=== PATIENT | female | born 1975 | race Caucasian/White ===

== ENCOUNTER → 2017-08-25 | Outpatient (CLI) | payer MEDICAID, OTHER ==
[2017-08-25 08:07] LABS: HCT 40.3 % (34.0-46.0); HGB 12.4 gm/dL (11.4-16.0); MCH 27.8 pg (25.0-35.0); MCHC 30.8 g/dL (31.0-37.0); MCV 90.2 fL (80.0-100.0); Mean Platelet Volume 7.4; Platelet Count 304 k/uL (150-450); RBC 4.46 m/uL (3.80-5.40); RDW 13.3 % (11.5-15.5); WBC 9.7 k/uL (3.8-10.6)
[2017-08-25 08:43] LABS: T4, Free (Free Thyroxine) 0.98 ng/dL (0.78-2.19)
[2017-08-25 20:30] LABS: Hemoglobin A1C 5.7 % (4.0-6.0)
== END | disposition home or self-care (01) ==
LOC: LABWHC1 07:35
PROVIDERS: ATTEND Obstetrics & Gynecology
DX: E55.9 Vitamin D deficiency, unspecified (principal); R53.83 Other fatigue; E78.4 Other hyperlipidemia; Z13.1 Encounter for screening for diabetes mellitus
CPT/HCPCS: 36415; 80061; 82306; 82947; 83036; 84439; 84443; 85027

== ENCOUNTER → 2018-11-17 | Outpatient (CLI) | payer MEDICAID, OTHER ==
--- NOTE | 2018-11-18 11:55 | MM ---
Reason for exam: screening (asymptomatic). History: Benign excisional biopsy of the right breast, 2008. Physical Findings: A clinical breast exam by your physician is recommended on an annual basis and results should be correlated with mammographic findings. MG 3D Screening Mammo W/Cad Bilateral CC and MLO view(s) were taken. No prior studies available for comparison. The breast tissue is heterogeneously dense. This may lower the sensitivity of mammography. Nodular focal asymmetry on the left and 10 o'clock posterior left breast calcifications warrant further work up. ASSESSMENT: Incomplete: need additional imaging evaluation, BI-RAD 0 RECOMMENDATION: Special view mammogram of the left breast. If lesion persists on supplemental views, image directed ultrasound is recommended. [facility] will attempt to contact patient to return for supplemental views and ultrasound if indicated.
== END | disposition home or self-care (01) ==
LOC: RADMAMWWP 14:27
PROVIDERS: ATTEND Obstetrics & Gynecology
DX: Z12.31 Encounter for screening mammogram for malignant neoplasm of breast (principal)
CPT/HCPCS: 77063; 77067

== ENCOUNTER → 2018-11-23 | Outpatient (CLI) | payer MEDICAID, OTHER ==
--- NOTE | 2018-11-24 08:17 | MM ---
Reason for exam: additional evaluation requested from abnormal screening. Last mammogram was performed less than 1 month ago. History: Family history of breast cancer in paternal grandmother at age 80. Benign excisional biopsy of the right breast, 2008. Took hormonal contraceptives beginning at age 16. Physical Findings: Nurse did not find any significant physical abnormalities on exam. MG 3D Work Up W/Cad LT Spot compression CC, spot compression MLO, LM with magnification, CC with magnification, and LM view(s) were taken of the left breast. Prior study comparison: November 17, 2018, bilateral MG 3d screening mammo w/cad. The breast tissue is heterogeneously dense. This may lower the sensitivity of mammography. There is a left upper outer quadrant middle depth mass likely lymph node, ultrasound recommended, upper inner quadrant middle depth focal asymmetry also seen, ultrasound is recommended. There is a 3mm group of upper inner quadrant far posterior depth calcifications. These results were verbally communicated with the patient and result sheet given to the patient on 11/23/18. ASSESSMENT: Incomplete: need additional imaging evaluation, BI-RAD 0 RECOMMENDATION: Ultrasound of the left breast.
--- NOTE | 2018-11-24 08:21 | USB ---
Reason for exam: additional evaluation requested from abnormal screening. History: Family history of breast cancer in paternal grandmother at age 80. Benign excisional biopsy of the right breast, 2008. Took hormonal contraceptives beginning at age 16. US Breast Workup Limited LT Left limited breast ultrasound including focal area of concern, retroareolar and axilla demonstrates a 5 x 3 x 5mm oval, cystic lesion at 2 o'clock, a 3 x 3 x 3mm oval, cystic lesion at 3 o'clock, slightly irregular boarders, 6 month follow up ultrasound recommended and a 7 x 3 x 4mm oval, questionable lymph node at 3 o'clock, corresponds with mammographic probably lymph nodes. Mammogram 6 month follow up for right upper inner quadrant for asymmetry. These results were verbally communicated with the patient and result sheet given to the patient on 11/23/18. ASSESSMENT: Suspicious, BI-RAD 4 RECOMMENDATION: Stereotactic core biopsy of the left breast. (left calcifications) Called Dr. Foster with mammographic findings and has scheduled an appointment for the patient for 01/19/19 at 1:[address] Raza. Biopsy scheduled for 12/07/18 at 2:20. PRELIMINARY REPORT CALLED AND FAXED TO DR. RAZA ON 11/24/18.
== END | disposition home or self-care (01) ==
LOC: RADMAMWWP 09:47
PROVIDERS: ATTEND Obstetrics & Gynecology
DX: R92.8 Other abnormal and inconclusive findings on diagnostic imaging of breast (principal)
CPT/HCPCS: 77061; 77065

== ENCOUNTER → 2018-12-01 | Outpatient (CLI) | payer MEDICAID, OTHER ==
--- NOTE | 2018-12-01 15:19 | US ---
EXAMINATION TYPE: US pelvis complete transvag DATE OF EXAM: 12/01/2018 COMPARISON: NONE CLINICAL HISTORY: N92.0 Menorrhagia/N85.2 Enlarged Uterus. TECHNIQUE: Transvaginal (TV) and Transabdominal (TA) . Transabdominal sonographic images of the pel vis were acquired. Transvaginal sonographic images were medically necessary to better assess the fol lowing anatomy: Uterus Date of LMP: 11/07/18 EXAM MEASUREMENTS: Uterus: 9.7 x 6.4 x 5.6 cm Endometrial Stripe: 0.7 cm Right Ovary: 2.5 x 2.2 x 1.8 cm Left Ovary: 2.9 x 2.2 x 2.0 cm 1. Uterus: Anteverted bulky, heterogeneous texture, ? myomatous. 2. Endometrium: wnl 3. Right Ovary: wnl, follicles noted. 4. Left Ovary: wnl, follicles noted. 5. Bilateral Adnexa: wnl 6. Posterior cul-de-sac: wnl IMPRESSION: 1. Leiomyomatous change of the uterus.
== END | disposition home or self-care (01) ==
LOC: RADUSWWP 14:15
PROVIDERS: ATTEND Obstetrics & Gynecology
DX: D25.9 Leiomyoma of uterus, unspecified (principal)
CPT/HCPCS: 76830; 76856

== ENCOUNTER → 2018-12-07 | Day surgery (SDC) | payer MEDICAID, OTHER ==
[2018-12-07 14:10] VITALS: RESP 16; BMI 28.3
[2018-12-07 14:54] VITALS: BP 109/75; PULSE 80; TEMP 98.1
--- NOTE | 2018-12-07 16:02 | MM ---
EXAMINATION TYPE: MG stereo VAD BX LT DATE OF EXAM: 12/07/2018 COMPARISON: Mammogram 02/23/2019 CLINICAL HISTORY: Abnormal mammogram TECHNIQUE: Stereotactic guided core biopsy of left breast. FINDINGS: The procedure of stereotactic guided core biopsy was explained to the patient. Benefits, a lternatives, and risks were discussed. An informed consent was then obtained. The [facility] pathway for biopsy was chosen. I performed the localization and the procedure. A vacu um assisted biopsy gun was used to obtain multiple core samples using stereotactic guidance. The patient tolerated the procedure well without any immediate complication. The patient was kept in the radiology department for short stay after the procedure and then discharged home in stable condi tion. Targeted calcifications are identified in specimen mammogram. Post biopsy mammogram shows the clip to appear in satisfactory position relative to the targeted area of concern on the preprocedure images. IMPRESSION: SUCCESSFUL, UNCOMPLICATED STEREOTACTIC GUIDED CORE BIOPSY OF AREA OF CONCERN IN THE left BREAST, FULL PATHOLOGY RESULTS TO FOLLOW. This procedure performed by the undersigned.
== END | disposition home or self-care (01) ==
LOC: RADMAMWWP 13:29
PROVIDERS: ATTEND Surgery
DX: N60.12 Diffuse cystic mastopathy of left breast (principal)
CPT/HCPCS: 88305; 19081; A4648; J2001

== ENCOUNTER 2019-06-14 11:21 | Emergency (ER) | payer MEDICAID, OTHER ==
[2019-06-14 11:28] VITALS: RESP 18
--- NOTE | 2019-06-14 12:21 | CT ---
EXAMINATION TYPE: CT brain wo con DATE OF EXAM: 06/14/2019 COMPARISON: None HISTORY: Head pressure, strobe light in eyes CT DLP: 1025.4 mGycm. Automated Exposure Control for Dose Reduction was Utilized. TECHNIQUE: CT scan of the head is performed without contrast. FINDINGS: There is no acute intracranial hemorrhage, mass effect, or midline shift identified. The ventricles and sulci are within normal limits in size. Changes of mild chronic sinusitis partially e mpty sella turcica. IMPRESSION: 1. No acute intracranial hemorrhage, mass effect, or midline shift is seen. Correlate with MRI as cli nically warranted or if there is concern for increased cranial pressure. 2. Partially empty sella turcica. 3. Chronic sinusitis
[2019-06-14] MEDS ORDERED: BUTALB/APAP/CAFF 50-325-40MG TAB PO STA (12:41)
[2019-06-14 13:15] VITALS: BP 123/83; PULSE 85; TEMP 98.2
--- NOTE | 2019-06-14 13:29 | ED ---
General Adult HPI - General Source: patient, RN notes reviewed Mode of arrival: ambulatory Limitations: no limitations <Julio Mccord - Last Filed: 06/14/19 13:22> <Liza Franco - Last Filed: 06/14/19 23:38> - General Chief complaint: Eye Problems Stated complaint: Flashes in eye/pressure in head Time Seen by Provider: 06/14/19 11:35 - History of Present Illness Initial comments: 43-year-old female without any significant past medical history presents to the emergency department for visual changes and headache. Patient states that approximately an hour prior to arrival she started to have small flashes of light in her vision. States that these flashes became bigger and eventually took up her whole vision. States this lasted about 20 minutes. Once this result she started having a headache over the left frontal area. Patient states that headache has improved significant and is currently a 2 out of 10. States that visual changes have completely resolved, states her vision is normal at this time.she denies history of migraines but states that her coworkers thought it probably was a migraine. Patient has no other complaints at this time including shortness of breath, chest pain, abdominal pain, nausea or vomiting, or visual changes. (Julio Mccord) - Related Data Home Medications Medication Instructions Recorded Confirmed Ibuprofen [Motrin] 800 mg PO Q12HR PRN 12/01/18 12/07/18 Allergies Allergy/AdvReac Type Severity Reaction Status Date / Time No Known Allergies Allergy Verified 12/07/18 13:46 Review of Systems ROS Other: All systems not noted in ROS Statement are negative. <Julio Mccord - Last Filed: 06/14/19 13:22> ROS Other: All systems not noted in ROS Statement are negative. <Liza Franco - Last Filed: 06/14/19 23:38> ROS Statement: Those systems with pertinent positive or pertinent negative responses have been documented in the HPI. Past Medical History Past Medical History: No Reported History Additional Past Medical History / Comment(s): NUMBNESS AND TINGLING LEFT LEG AND FOOT History of Any Multi-Drug Resistant Organisms: None Reported Past Surgical History: Back Surgery Additional Past Surgical History / Comment(s): RT AXILLA LYMPH NODE, LAMINECTOMY DECOMPRESSION L5-S1,DISCECTOMY FOR DECOMPRESSION L5S1 Past Anesthesia/Blood Transfusion Reactions: No Reported Reaction Past Psychological History: No Psychological Hx Reported Smoking Status: Former smoker Past Alcohol Use History: Occasional Past Drug Use History: None Reported - Past Family History Mother Family Medical History: Osteoarthritis (OA) Additional Family Medical History / Comment(s): djd Father Family Medical History: Coronary Artery Disease (CAD), Myocardial Infarction (SC) Additional Family Medical History / Comment(s): cabg <Julio Mccord - Last Filed: 06/14/19 13:22> General Exam Limitations: no limitations General appearance: alert, in no apparent distress Head exam: Present: atraumatic, normocephalic, normal inspection Eye exam: Present: normal appearance, PERRL, EOMI. Absent: scleral icterus, conjunctival injection, periorbital swelling ENT exam: Present: normal exam, mucous membranes moist Neck exam: Present: normal inspection, full ROM. Absent: tenderness, meningismus, lymphadenopathy Respiratory exam: Present: normal lung sounds bilaterally. Absent: respiratory distress, wheezes, rales, rhonchi, stridor Cardiovascular Exam: Present: regular rate, normal rhythm, normal heart sounds. Absent: systolic murmur, diastolic murmur, rubs, gallop, clicks Neurological exam: Present: alert, oriented X3, CN II-XII intact, normal gait, other (GCS 15) <Julio Mccord P - Last Filed: 06/14/19 13:22> Course Vital Signs 06/14/19 06/14/19 11:25 13:13 Temperature 97.7 F 98.2 F Pulse Rate 87 85 Respiratory 18 18 Rate Blood Pressure 124/85 123/83 O2 Sat by Pulse 97 98 Oximetry Medical Decision Making <Julio Mccord P - Last Filed: 06/14/19 13:22> <Liza Franco - Last Filed: 06/14/19 23:38> - Medical Decision Making Patient is well-appearing. States that her pain has improved and is currently a 2 out of 10. States that her visual symptoms have completely resolved. Visual acuity is 20/20 bilaterally. Discussed with patient that this likely is migraine with aura. However recommended CT to evaluate for other etiology. This does show no acute cranial hemorrhage, mass effect, or midline shift. There is a partially empty sella turcica with chronic sinusitis. Patient reevaluated, feeling well at this time. Patient was discharged home to follow- up with primary care. We discussed returning if she has any worsening symptoms. (Julio Mccord) I was available for consultation in the emergency department. The history and physical exam were done by the midlevel provider. I was consulted for this patients care. I reviewed the case with the midlevel provider and based on their presentation of the patient, I agree with the assessment, medical decision making and plan of care as documented. Chart was dictated using [employer] dictation software. Attempts were made to correct any dictation errors however some typographical errors may persist. (Liza Franco) Disposition Is patient prescribed a controlled substance at d/c from ED?: No Time of Disposition: 13:28 <Julio Mccord - Last Filed: 06/14/19 13:22> <Liza Franco - Last Filed: 06/14/19 23:38> Clinical Impression: Headache Disposition: HOME SELF-CARE Condition: Good Instructions (If sedation given, give patient instructions): Migraine Headache (ED) Additional Instructions: Please follow up with primary care 1-2 days. If you have any worsening symptoms return to the emergency department. Referrals: Ace Corona DO [Primary Care Provider] - 1-2 days
== END 2019-06-14 13:47 | disposition home or self-care (01) ==
LOC: EC 11:21
DX: R51 Headache (principal); J32.9 Chronic sinusitis, unspecified; Z87.891 Personal history of nicotine dependence
CPT/HCPCS: 70450; 99284

== ENCOUNTER → 2020-10-03 | Outpatient (CLI) | payer MEDICAID, OTHER ==
--- NOTE | 2020-10-03 09:39 | MM ---
Reason for exam: additional evaluation requested from prior study. Last mammogram was performed 1 year and 10 months ago. History: Family history of breast cancer in paternal grandmother at age 80. Benign MG stereo VAD BX LT of the left breast, December 07, 2018. Benign excisional biopsy of the right breast, 2008. Took hormonal contraceptives beginning at age 16. Physical Findings: Nurse did not find any significant physical abnormalities on exam. MG 3D Diag Mammo W/Cad FLAVIO Bilateral CC and MLO view(s) were taken. Spot compression CC view(s) were taken of the left breast. Prior study comparison: November 23, 2018, left breast MG 3d work up w/cad LT. November 17, 2018, bilateral MG 3d screening mammo w/cad. The breast tissue is heterogeneously dense. This may lower the sensitivity of mammography. Developing asymmetry left outer CC position, disperses on compression. This finding is changed when compared with previous exams. These results were verbally communicated with the patient and result sheet given to the patient on 10/03/20. ASSESSMENT: Probably benign, BI-RAD 3 RECOMMENDATION: Follow-up diagnostic mammogram of the left breast in 6 months.
== END | disposition home or self-care (01) ==
LOC: RADMAMWWP 08:05
PROVIDERS: ATTEND Family Medicine
DX: N64.89 Other specified disorders of breast (principal); Z80.3 Family history of malignant neoplasm of breast
CPT/HCPCS: 77062; 77066

== ENCOUNTER → 2021-10-25 | Outpatient (CLI) | payer MEDICAID, OTHER ==
[2021-10-25 10:28] LABS: Basophils # (A) 0.06 X 10*3/uL (0.00-0.10); Basophils % (A) 0.7 %; Eosinophils # (A) 0.31 X 10*3/uL (0.04-0.35); Eosinophils % (A) 3.5 %; HCT 41.3 % (37.2-46.3); Immature Grans, Automated 0.2 %; Lymphocytes # (A) 2.09 X 10*3/uL (0.90-5.00); Lymphocytes % (A) 23.6 %; MCH 27.7 pg (27.0-32.0); MCHC 31.5 g/dL (32.0-37.0); MCV 87.9 fL (80.0-97.0); Mean Platelet Volume 10.2 fL (9.5-12.2); Monocytes # (A) 0.58 X 10*3/uL (0.20-1.00); Monocytes % (A) 6.5 %; NRBC Per 100 WBC 0 /100 WBCS (0.0-0.0); Neutrophils # (A) 5.81 X 10*3/uL (1.80-7.70); Neutrophils % (A) 65.5 %; Platelet Count 360 X 10*3/uL (140-440); RDW 13.6 % (11.5-14.5); WBC 8.87 X 10*3/uL (4.50-10.00)
[2021-10-25 10:57] LABS: % Iron Saturation 24.22 (12.00-45.00); ALT 40 U/L (8-44); AST 17 U/L (13-35); African American GFR (CKD) 120.4 (60.0-200.0); Albumin 4.8 g/dL (3.8-4.9); Albumin/Globulin Ratio 1.78 (1.60-3.17); Alkaline Phosphatase 105 U/L (41-126); BUN/Creat Ratio 21.86 Ratio (12.00-20.00); Blood Urea Nitrogen 15.3 mg/dL (9.0-27.0); Calcium 9.7 mg/dL (8.7-10.3); Carbon Dioxide 24.9 mmol/L (20.0-27.5); Chloride 99 mmol/L (96-109); Chol/HDL Ratio 4.21 Ratio; Globulin 2.7 g/dL (1.6-3.3); Glucose 105 mg/dL (70-110); Iron 99 ug/dL (50-170); LDL Cholesterol,Calculated 166.1 mg/dL (0.0-131.0); Non-African American GFR(CKD) 103.9 (60.0-200.0); Potassium 4.5 mmol/L (3.5-5.5); Sodium 136 mmol/L (135-145); Total Iron Binding Capacity 409 ug/dL (228-460); Total Protein 7.5 g/dL (6.2-8.2)
== END | disposition home or self-care (01) ==
LOC: LABWHC1 08:13
PROVIDERS: ATTEND Nurse Practitioner Family
DX: E66.9 Obesity, unspecified (principal); R53.83 Other fatigue
CPT/HCPCS: 36415; 80053; 80061; 82306; 82607; 82746; 83540; 83550; 84439; 84443; 85025

== ENCOUNTER → 2021-11-08 | Outpatient (CLI) | payer MEDICAID, OTHER ==
--- NOTE | 2021-11-08 08:23 | MM ---
Reason for exam: additional evaluation requested from prior study. Last mammogram was performed 1 year and 1 month ago. History: Family history of breast cancer in paternal grandmother at age 80. Benign MG stereo VAD BX LT of the left breast, December 07, 2018. Benign excisional biopsy of the right breast, 2008. Took hormonal contraceptives beginning at age 16. Physical Findings: A clinical breast exam by your physician is recommended on an annual basis and results should be correlated with mammographic findings. MG 3D Diag Mammo W/Cad FLAVIO Bilateral CC and MLO view(s) were taken. Prior study comparison: October 03, 2020, bilateral MG 3d diag mammo w/cad FLAVIO. November 23, 2018, left breast MG 3d work up w/cad LT. The breast tissue is heterogeneously dense. This may lower the sensitivity of mammography. There is chronic nodularity bilaterally. There is no dominant lesion. No significant new findings when compared with previous films. Results were given to the patient verbally at the time of the exam. ASSESSMENT: Benign, BI-RAD 2 RECOMMENDATION: Routine screening mammogram of both breasts in 1 year.
== END | disposition home or self-care (01) ==
LOC: RADMAMWWP 07:00
PROVIDERS: ATTEND Family Medicine
DX: R92.8 Other abnormal and inconclusive findings on diagnostic imaging of breast (principal); Z80.3 Family history of malignant neoplasm of breast
CPT/HCPCS: 77062; 77066

== ENCOUNTER → 2021-12-09 | Outpatient (CLI) | payer MEDICAID, OTHER ==
--- NOTE | 2021-12-09 09:13 | US ---
EXAMINATION TYPE: US abdomen complete DATE OF EXAM: 12/09/2021 COMPARISON: NONE CLINICAL HISTORY: 46-year-old female R10.31 RUQ PAIN. RLQ pain. Acid reflux, gagging reflex for 2 yea rs TECHNIQUE: Multiple sonographic images of the abdomen are obtained. FINDINGS: EXAM MEASUREMENTS: Liver Length: 14.8cm Gallbladder Wall: 0.3 cm CBD: 0.4 cm Spleen: 9.7 cm Right Kidney: 9.9 x 4.1 x 4.4 cm Left Kidney: 12.6 x 5.1 x 4.4 cm Pancreas: Most of the pancreas is seen and shows no gross abnormality. Liver: wnl Gallbladder: no evidence of stones Evidence for sonographic Pulido's sign: no CBD: wnl Spleen: wnl Right Kidney: A couple adjacent echogenic foci measuring 4 mm laterally. No hydronephrosis. Left Kidney: no evidence of hydronephrosis Upper IVC: wnl Abd Aorta: wnl IMPRESSION: A couple echogenic foci in the right kidney measuring 4 mm, likely nonobstructive calculi. Otherwise, unremarkable sonographic examination of the abdomen.
--- NOTE | 2021-12-09 11:30 | US ---
EXAMINATION TYPE: US pelvic complete DATE OF EXAM: 12/09/2021 COMPARISON: NONE CLINICAL HISTORY: 46-year-old female R10.31 RLQ pain. TECHNIQUE: Transabdominal (TA) Date of LMP: 2 weeks ago FINDINGS: EXAM MEASUREMENTS: Uterus: 10.1 x 5.2 x 7.2 cm Endometrial Stripe: 0.4 cm Right Ovary: 2.7 x 1.9 x 2.1 cm Left Ovary: 2.5 x 1.8 x 1.9 cm 1. Uterus: Anteverted, retroflexed. There is a small 7 mm hypoechoic area posterior uterine body i ntramural location. 2. Endometrium: wnl 3. Right Ovary: follicles noted 4. Left Ovary: follicles noted 5. Bilateral Adnexa: wnl 6. Posterior cul-de-sac: wnl IMPRESSION: 1. Incidental small 7 mm probable intramural fibroid posterior uterine body. 2. Normal follicular change in the ovaries.
== END | disposition home or self-care (01) ==
LOC: RADUSWWP 07:06
PROVIDERS: ATTEND Family Medicine
DX: K21.9 Gastro-esophageal reflux disease without esophagitis (principal); N83.02 Follicular cyst of left ovary; N83.01 Follicular cyst of right ovary
CPT/HCPCS: 76700; 76856

== ENCOUNTER 2022-02-05 07:01 | Day surgery (SDC) | payer MEDICAID, OTHER ==
[2022-02-04 09:09] VITALS: BMI 31.1
[2022-02-05 07:28] VITALS: TEMP 96.9
[2022-02-05] MEDS ORDERED: LACTATED RINGERS 1,000 ML IV SCH (07:30)
[2022-02-05] MEDS ORDERED: LIDOCAINE 1% (10MG/ML) FOR IV START INTRADERMA PRN (07:30)
[2022-02-05] MEDS ORDERED: LIDOCAINE 2% INJ 20 MG/ML (2 ML VIAL) ONE (07:58)
[2022-02-05] MEDS ORDERED: PROPOFOL 10 MG/ML 20 ML VIAL IV ONE (07:58)
[2022-02-05] MEDS ORDERED: MIDAZOLAM 2 MG/2 ML VIAL ONE (07:58)
--- NOTE | 2022-02-05 08:25 | P.PCN ---
Date of Procedure: 02/05/22 Procedure(s) Performed: Brief history: Patient is a pleasant 46-year-old white female scheduled for an elective upper endoscopy as well as colonoscopy as a part of evaluation of long-standing history of GERD and alternating diarrhea and constipation for the last several years duration associated with lower abdominal pain. Procedure performed: Esophagogastroduodenoscopy with biopsy Colonoscopy with biopsy Preoperative diagnosis: GERD Change in bowel habits Anesthesia: MAC Procedure: After informed consent was obtained from the patient was brought into the endoscopy unit and IV sedation was administered by anesthesia under continuous monitoring. Initially upper endoscopy was done. The Olympus GF 160 video endoscope was inserted inserted into the mouth and esophagus intubated without any difficulty and was gradually advanced into the stomach and duodenum and carefully examined. The bulb and second part of the duodenum appeared normal. Biopsies were done from the duodenum to rule out celiac disease. The scope was then withdrawn into the stomach adequately insufflated with air and upon careful examination the antrum had mild gastritis and biopsies were done from this area. The body, cardia and fundus appeared normal. The scope was then withdrawn into the esophagus. The GE junction was located at 40 cm to the incisors. It appeared regular with some erythema and increased noted in the distal esophagus consistent with LA grade B reflux esophagitis. Rest of the esophagus appeared normal. Patient tolerated the procedure well. At this time the patient continued to remain sedation. Initial digital rectal examination was normal. Olympus CF 160 video colonoscope was then inserted into the rectum and gradually advanced to the cecum without any difficulty. Careful examination was performed as the scope was gradually being withdrawn. The prep was excellent. The cecum, ascending colon, transverse colon, descending colon, sigmoid colon and rectum appeared normal. Random biopsies were done from ascending colon. Retroflexion was performed in the rectum and no lesions were noted. Patient tolerated the procedure well. Impression: 1. Upper endoscopy revealed mild antral gastritis and reflux esophagitis 2. Colonoscopy was within normal limits with no evidence of colorectal neoplasia Recommendations: Findings of this examination were discussed with the patient as well as her family. She was advised to follow with the biopsy results. She'll be seen in office in 2-3 weeks.
[2022-02-05 08:44] VITALS: BP 133/85; PULSE 72; RESP 18
== END 2022-02-05 09:13 ==
LOC: ORWHC2ENDO 07:01
PROVIDERS: ATTEND Internal Medicine Gastroenterology
DX: K21.00 Gastro-esophageal reflux disease with esophagitis, without bleeding (principal); K29.50 Unspecified chronic gastritis without bleeding; Z87.891 Personal history of nicotine dependence; Z82.61 Family history of arthritis; Z82.49 Family history of ischemic heart disease and other diseases of the circulatory system; Z82.69 Family history of other diseases of the musculoskeletal system and connective tissue
CPT/HCPCS: 81025; 88305; 45380; 43239; J2250; J2704; J2001

== ENCOUNTER → 2023-02-12 | Outpatient (CLI) | payer MEDICAID, OTHER ==
--- NOTE | 2023-02-14 23:29 | MM ---
Reason for Exam: Screening (asymptomatic). Last mammogram was performed 1 year(s) and 3 month(s) ago. Patient History: Menarche at age 12. First Full-Term at age 17. Premenopausal. Hormonal Contraceptives, from age 16 until age 32. 2008, Benign Excisional Biopsy on the right side. 12/07/2018, Benign Core Biopsy on the left side. Paternal grandmother had breast cancer, age 80. Risk Values: Sary 5 year model risk: 1.4%. NCI Lifetime model risk: 10.4%. Prior Study Comparison: 11/23/2018 Left Diagnostic Mammogram, [facility]. 10/03/2020 Bilateral Diagnostic Mammogram, [facility]. 11/08/2021 Bilateral Diagnostic Mammogram, [facility]. Tissue Density: The breast tissue is heterogeneously dense. This may lower the sensitivity of mammography. Findings: Analyzed By CAD. Unchanged prominent intramammary lymph node upper outer quadrant left breast. Areas of asymmetric density remain unchanged. There is no suspicious group of microcalcifications or new suspicious mass in either breast. Overall Assessment: Benign, BI-RAD 2 Management: Screening Mammogram of both breasts in 1 year. . Patient should continue monthly self-breast exams. A clinical breast exam by your physician is recommended on an annual basis. This exam should not preclude additional follow-up of suspicious palpable abnormalities. Note on Sary scores and lifetime risk: 1. A Sary score greater than 3% is considered moderate risk. If this is the case, consider specialist referral to assess eligibility for a risk reducing agent. 2. If overall lifetime risk for the development of breast cancer is 20% or higher, the patient may qualify for future screening with alternating mammogram and breast MRI. Electronically signed and approved by: Garcia Varela M.D. Radiologist
== END | disposition home or self-care (01) ==
LOC: RADMAMWWP 16:04
PROVIDERS: ATTEND Obstetrics & Gynecology
DX: Z12.31 Encounter for screening mammogram for malignant neoplasm of breast (principal); Z80.3 Family history of malignant neoplasm of breast
CPT/HCPCS: 77063; 77067

== ENCOUNTER → 2023-02-23 | Outpatient (CLI) | payer MEDICAID, OTHER ==
--- NOTE | 2023-02-23 17:48 | XR ---
EXAMINATION TYPE: XR ankle complete RT DATE OF EXAM: 02/23/2023 COMPARISON: NONE HISTORY: 47 year-old female A66.6, bone and joint lesion, rolling injury. Pain and swelling. TECHNIQUE: 3 views FINDINGS: Circumferential soft tissue swelling especially laterally. No acute fracture, subluxation, or dislocation is seen. Ankle mortise appears congruent with preservation of the distal tibiofibular overlap. Talar dome is intact. Moderate sized plantar heel spur. Some fragmented and is opposite the at the Achilles insertion. IMPRESSION: Circumferential soft tissue swelling, especially laterally. No underlying acute osseous abnormality s een.
== END | disposition home or self-care (01) ==
LOC: RADXRMAIN 16:01
PROVIDERS: ATTEND Radiology Radiation Oncology
DX: A66.6 Bone and joint lesions of yaws (principal); M79.89 Other specified soft tissue disorders